=== PATIENT | male | born 1970 | race African-American/Black ===

== ENCOUNTER 2020-02-17 12:21 | Emergency (ER) | payer OTHER ==
[2020-02-17] MEDS ORDERED: BAMLANIVIMAB 700 MG in SODIUM CHLORIDE 180 ML IVPB ONE (13:04)
[2020-02-17 13:07] VITALS: BMI 39.0
[2020-02-17 14:41] VITALS: BP 134/76; PULSE 68; TEMP 98.5
[2020-02-17 15:30] LABS: BASO % 0.5 % (0-2.0); EOS % 2.5 % (0-4.5); HEMATOCRIT 41.3 % (35.4-49); HEMOGLOBIN 13.4 GM/dL (11.7-16.9); LYMPH % 52.5 % (8-40); MCH 29.7 pg (25.7-33.7); MCHC 32.4 g/dl (32.0-35.9); MEAN CELL VOLUME 91.9 fl (80-96); MEAN PLT VOLUME 9.6 fl (7.5-11.1); MONO % 18.5 % (3.8-10.2); PLATELET COUNT 194 K/MM3 (134-434); RBC 4.49 M/mm3 (4.00-5.60); RDW 14.8 % (11.9-15.9); WHITE BLOOD COUNT 3.2 K/mm3 (4.0-10.0)
[2020-02-17 15:48] LABS: POTASSIUM 4.1 mmol/L (3.5-5.1)
[2020-02-17 15:51] LABS: CALCIUM 8.7 mg/dL (8.5-10.1)
[2020-02-17 15:55] LABS: CREATININE 1.1 mg/dL (0.55-1.3)
[2020-02-17 15:56] LABS: BILIRUBIN,TOTAL 0.3 mg/dL (0.2-1); TOT PROT 7.7 g/dl (6.4-8.2)
== END 2020-02-17 17:02 | disposition home or self-care (01) ==
LOC: JER 12:21
PROC: 3E033GC Introduction of Other Therapeutic Substance into Peripheral Vein, Percutaneous Approach (ICD-10-PCS; principal; 2020-02-17)
DX: U07.1 COVID-19 (principal)
CPT/HCPCS: 36415; 80053; 85025; 99284-25; M0239; Q0239

== ENCOUNTER 2020-09-21 11:40 | Emergency (ER) | payer OTHER ==
[2020-09-21 12:00] VITALS: BP 130/85; PULSE 85; TEMP 98.2; BMI 33.5
== END 2020-09-21 12:30 | disposition home or self-care (01) ==
LOC: JER 11:40 → JERFT 11:40
DX: S60.211A Contusion of right wrist, initial encounter (principal); X50.0XXA Overexertion from strenuous movement or load, initial encounter; Y92.811 Bus as the place of occurrence of the external cause
CPT/HCPCS: 99281-25